=== PATIENT | female | born 1950 | race Two or more races ===

== ENCOUNTER → 2017-12-17 | Outpatient (CLI) | payer MEDICARE | END | disposition home or self-care (01) | LOC: CFH 12:59 | PROVIDERS: ATTEND Physician Assistant | DX: R13.10 Dysphagia, unspecified (principal) | CPT/HCPCS: 92610; G8996; G8997; G8998 ==

== ENCOUNTER → 2017-12-28 | Outpatient (CLI) | payer MEDICARE | END | disposition home or self-care (01) | LOC: CFH 08:35 | PROVIDERS: ATTEND Neurological Surgery | DX: M43.22 Fusion of spine, cervical region (principal); M54.2 Cervicalgia | CPT/HCPCS: 72040 ==

== ENCOUNTER → 2018-01-14 | Outpatient (CLI) | payer MEDICARE | END | disposition home or self-care (01) | LOC: RAD 16:00 | PROVIDERS: ATTEND Physician Assistant | DX: M43.22 Fusion of spine, cervical region (principal); M48.02 Spinal stenosis, cervical region; M47.892 Other spondylosis, cervical region | CPT/HCPCS: 72125 ==